=== PATIENT | female | born 1945 | race Caucasian/White ===

== ENCOUNTER 2019-10-31 15:48 | Inpatient (IN) | payer MEDICARE ==
[2019-10-31] MEDS ORDERED: METHYLPREDNISOLONE INJ 125 MG/2 ML SDV IV ONE (15:58)
[2019-10-31] MEDS ORDERED: IPRATROPIUM/ALBUTEROL 0.5-2.5 MG/3 ML AMPUL NEB ONE (15:58)
[2019-10-31] MEDS ORDERED: DILTIAZEM HCL/D5W 125 MG/125 ML RTUINJ IV PRN ×2 (15:58→21:28)
[2019-10-31 16:07] LABS: ABSOLUTE BASOPHILS # (AUTO) 0.1 10^3/uL (0.0-0.2); ABSOLUTE LYMPHOCYTES (AUTO) 0.5 10^3/uL (0.5-4.7); ABSOLUTE MONOCYTES (AUTO) 0.2 10^3/uL (0.1-1.4); ABSOLUTE NEUT (AUTO) 7.1 10^3/uL (1.7-8.2); BASOPHILS % (AUTO) 0.6 % (0-2); EOSINOPHILS % (AUTO) 0.3 % (0-6); HEMATOCRIT 41.8 % (36.0-47.0); HEMOGLOBIN 14.1 g/dL (12.0-15.5); LYMPHOCYTES % (AUTO) 5.8 % (13-45); MEAN CORPUSCULAR HEMOGLOBIN 33.6 pg (27.0-33.4); MEAN CORPUSCULAR HGB CONC 33.8 g/dL (32.0-36.0); MEAN CORPUSCULAR VOLUME 99 fl (80-97); MONOCYTES % (AUTO) 2.7 % (3-13); PLATELET COUNT 227 10^3/uL (150-450); RED BLOOD COUNT 4.21 10^6/uL (3.72-5.28); SEGMENTED NEUTROPHILS % (AUTO) 90.6 % (42-78); TOTAL CELLS COUNTED % (AUTO) 100 %; WHITE BLOOD COUNT 7.9 10^3/uL (4.0-10.5)
--- NOTE | 2019-10-31 16:19 | RADIOLOGY REPORT (SQ) ---
EXAM DESCRIPTION: CHEST SINGLE VIEW IMAGES COMPLETED DATE/TIME: 10/31/2019 4:09 pm REASON FOR STUDY: sob COMPARISON: None. EXAM PARAMETERS: NUMBER OF VIEWS: One view. TECHNIQUE: An AP view of the chest was obtained. RADIATION DOSE: NA LIMITATIONS: None. FINDINGS: LUNGS AND PLEURA: Upper lobe predominant emphysema and interstitial opacities in the lower lobes. There is no acute consolidation, pleural effusion or pneumothorax. MEDIASTINUM AND HILAR STRUCTURES: No mediastinal or hilar contour abnormality. HEART AND VASCULAR STRUCTURES: The cardiac silhouette and pulmonary vasculature are within normal reyes its. BONES: No acute findings. HARDWARE: None in the chest. OTHER: No other finding. IMPRESSION: COPD without a superimposed acute cardiopulmonary process. TECHNICAL DOCUMENTATION: JOB ID: [id number] 2010 [employer]- All Rights Reserved Reading location - IP/workstation name: [email or web address]
--- NOTE | 2019-10-31 16:22 | ER Document Report ---
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 The patient was sent over here to the ER. The patient states she is on 8 L of oxygen all the time. She did have her oxygen on at the time EMS noted that she was in A. fib with RVR. She has no history of A. fib denies any recent fever sore throat runny nose, no coronavirus exposures. Patient denies any chest pain. EMS found her sats to be 68% she denies calf pain or leg swelling more than usual. She presents here for further evaluation and treatment. EMS had to place her on CPAP and a Cardizem bolus and drip. We will continue this state her symptoms were sudden and severe. She has no history of pulmonary embolism. - Related Data Allergies/Adverse Reactions: No Known Allergies Allergy (Verified 10/31/19 16:32) Past Medical History - Social History Smoking Status: Unknown if Ever Smoked Family History: Reviewed & Not Pertinent Review of Systems - Review of Systems Constitutional: denies: Chills, Fever Cardiovascular: Palpitations, Heart racing, Dyspnea. denies: Chest pain Gastrointestinal: denies: Nausea, Vomiting Musculoskeletal: No symptoms reported -: Yes All other systems reviewed and negative Physical Exam - Vital signs Vitals: Resp Pulse Ox 20 100 10/31/19 15:52 10/31/19 15:52 - Notes Notes: GENERAL_APPEARANCE: well_nourished, alert, cooperative, obvious respiratory distress VITALS: reviewed, see vital signs table. HEAD: no_swelling\tenderness on the head. EYES: PERRL, EOMI, conjunctiva_clear. NOSE: no_nasal_discharge. MOUTH: (-)decreased moisture. THROAT: no_tonsilar_inflammation, no_airway_obstruction. no_lymphadenopathy NECK: supple, no_neck_tenderness, (-)thyromegaly. BACK: no_back_tenderness. CHEST_WALL: no_chest_tenderness. LUNGS: Scattered wheezing, no_rales, no_rhonchi, (moderate)accessory muscle use, or air exchange bilateral. HEART: normal_rate, normal_rhythm, normal_S1, normal_S2, (-)S3, (-)S4, no_murmur, no_rub. ABDOMEN: soft, no_abd_tenderness, (-)guarding, (-)rebound, no_organomegaly, no_abd_masses. EXTREMITIES: good pulses in all_extremities, no_swelling\tenderness in the extremities, 1+ _edema. SKIN: warm, dry, good_color, no_rash. MENTAL_STATUS: speech_labored oriented_X_3, labored_affect, responds_appropriately to questions. NEURO: Neg Motor or Sensory Deficits on exam, CN 2-12 intact, DTR 2+ symmetric x 4, No cerbellar signs Course - Re-evaluation Re-evalutation: 10/31/19 16:21 74-year-old female with history of COPD presents with respiratory distress. Patient was placed on BiPAP. EMS did use CPAP she also has new onset atrial f ibrillation. She was given Cardizem and Cardizem bolus. We will rate control her. 10/31/19 20:27 D-dimer was positive. We got a CTA which did not show any pulmonary embolism. Chronic changes were noted. Likely the patient is having a COPD exacerbation with A. fib with RVR. She has been rate controlled on a Cardizem drip. I spoke with hospitalist service for admission. We will continue the Cardizem drip. Still on the BiPAP but is improving. Had steroids. I see no signs of any pneumonia lactic acid was elevated but this is likely due to her tachycardia causing this. - Vital Signs Vital signs: Temp Pulse Resp BP Pulse Ox 98.0 F 128 H 20 129/59 H 100 10/31/19 16:59 10/31/19 16:59 10/31/19 18:40 10/31/19 18:01 10/31/19 18:01 - Laboratory Result Diagrams: 10/31/19 15:18 10/31/19 15:18 Laboratory results interpreted by me: 10/31/19 10/31/19 10/31/19 15:18 15:18 15:18 MCV 99 H MCH 33.6 H Lymph % (Auto) 5.8 L Clarke % (Auto) 2.7 L Seg Neutrophils % 90.6 H D-Dimer ABG pO2 ABG Total CO2 ABG O2 Saturation Sodium 133.8 L Chloride 97 L Glucose 143 H Lactic Acid CK-MB (CK-2) 4.93 H 10/31/19 10/31/19 10/31/19 15:18 16:01 16:05 MCV MCH Lymph % (Auto) Clarke % (Auto) Seg Neutrophils % D-Dimer 0.59 H ABG pO2 198.4 H ABG Total CO2 25.1 H ABG O2 Saturation 99.4 H Sodium Chloride Glucose Lactic Acid 2.3 H CK-MB (CK-2) - Diagnostic Test Radiology reviewed: Reports reviewed Radiology results interpreted by me: 10/31/19 20:28 Chest X-Ray 10/31/19 15:53 IMPRESSION: COPD without a superimposed acute cardiopulmonary process. Chest/Abdomen CTA 10/31/19 17:35 IMPRESSION: There is no pulmonary embolus. There is no aortic aneurysm or dissection. Osseous findings as described. Chronic lung changes. - EKG Interpretation by Me Rate: Tachycardia Rhythm: A.Fib Critical Care Note - Critical Care Note Total time excluding time spent on procedures (mins): 33 Discharge - Discharge Clinical Impression: Atrial fibrillation with RVR, COPD exacerbation Condition: Fair Disposition: ADMITTED INPATIENT Admitting Provider: Ashley (Hospitalist) Unit Admitted: [facility]
[2019-10-31 16:25] LABS: ALBUMIN 4.5 g/dL (3.5-5.0); ALKALINE PHOSPHATASE 61 U/L (38-126); ANION GAP 10 (5-19); ASPARTATE AMINO TRANSFERASE 32 U/L (14-36); BILIRUBIN,TOTAL 0.9 mg/dL (0.2-1.3); BLOOD UREA NITROGEN 12 mg/dL (7-20); CALCIUM 9.6 mg/dL (8.4-10.2); CARBON DIOXIDE 27 mmol/L (22-30); CHLORIDE 97 mmol/L (98-107); CREATINE KINASE 82 U/L (30-135); GLUCOSE 143 mg/dL (75-110); POTASSIUM 4.4 mmol/L (3.6-5.0); TOTAL PROTEIN 7.2 g/dL (6.3-8.2)
[2019-10-31 16:32] LABS: ARTERIAL BLOOD BASE EXCESS -0.8 mmol/L; ARTERIAL BLOOD H2CO3 1.19 mmol/L (1.05-1.35); ARTERIAL BLOOD HCO3 23.9 mmol/L (20-24); ARTERIAL BLOOD O2 SATURATION 99.4 % (94-98); ARTERIAL BLOOD PCO2 39.7 mmHg (35-45); ARTERIAL BLOOD PO2 198.4 mmHg (80-100); ARTERIAL BLOOD TOTAL CO2 25.1 mmol/L (21-25)
[2019-10-31 16:34] LABS: CREATINE KINASE MB 4.93 ng/mL (<4.55)
[2019-10-31 16:35] LABS: ARTERIAL BLOOD FIO2 BI-PAP
[2019-10-31 16:39] LABS: TROPONIN I < 0.012 ng/mL
--- NOTE | 2019-10-31 19:10 | RADIOLOGY REPORT (SQ) ---
EXAM DESCRIPTION: CTA CHEST IMAGES COMPLETED DATE/TIME: 10/31/2019 6:35 pm REASON FOR STUDY: SOB - High D-Dimer COMPARISON: None. TECHNIQUE: CT scan of the chest performed using helical scanning technique with dynamic intravenous contrast injection. Images reviewed with lung, soft tissue and bone windows. Reconstructed coronal and sagittal MPR images reviewed. Additional 3 dimensional post-processing performed to develop Maximal Intensity Projection images (AZ P). All images stored on PACS. All CT scanners at this facility use dose modulation, iterative reconstruction, and/or weight based d osing when appropriate to reduce radiation dose to as low as reasonably achievable (ALARA). [facility]: Dose Right [facility]: CareDose [facility]: Dose Right [facility]: Teradose 4D [facility]: [employer] CONTRAST TYPE AND DOSE: contrast/concentration: Isovue 350.00 mg/ml; Total Contrast Delivered: 59.0 ml; Total Saline Delivered: 38.1 ml Contrast bolus adequate for pulmonary arteries and aorta. RENAL FUNCTION: BUN 12 creatinine 0.65 RADIATION DOSE: CT Rad equipment meets quality standard of care and radiation dose reduction techniq ues were employed. CTDIvol: 14.3 - 14.9 mGy. DLP: 588 mGy-cm. . LIMITATIONS: None. FINDINGS: LUNGS AND PLEURA: Mild chronic interstitial changes. No acute infiltrate, effusion, or ma ss. AORTA AND GREAT VESSELS: No aneurysm. No dissection. HEART: No pericardial effusion. No significant coronary artery calcifications. PULMONARY ARTERIES: No emboli visualized in the main pulmonary arteries or the segmental branches. HILAR AND MEDIASTINAL STRUCTURES: No identified masses or abnormal nodes. HARDWARE: None in the chest. UPPER ABDOMEN: No significant findings. Limited exam. THYROID AND OTHER SOFT TISSUES: No masses. No adenopathy. BONES: Cannot entirely exclude a fracture of the lower sternum, but this most likely is secondary to motion. 3D MIPS: Confirm above findings. OTHER: No other significant finding. IMPRESSION: There is no pulmonary embolus. There is no aortic aneurysm or dissection. Osseous find ings as described. Chronic lung changes. COMMENT: Quality ID # [id number]: Final reports with documentation of one or more dose reduction techniques (e.g., Automated exposure control, adjustment of the mA and/or kV according to patient size, use of iterative reconstruction technique) TECHNICAL DOCUMENTATION: JOB ID: [id number] [employer]- All Rights Reserved Reading location - IP/workstation name: [email or web address]
[2019-10-31] MEDS ORDERED: LEVALBUTEROL HCL NEB 0.63 MG/3 ML AMPUL NEB PRN (21:19)
[2019-10-31] MEDS ORDERED: MAGNESIUM HYDROXIDE SUSP 30 ML UDCUP PO PRN (21:19)
[2019-10-31] MEDS ORDERED: MAG HYDROX/AL HYDROX/SIMETH SUSP 30 ML UDCUP PO PRN (21:19)
[2019-10-31] MEDS ORDERED: ONDANSETRON HCL INJ/PF 4 MG/2 ML SDV IV PRN (21:19)
[2019-10-31] MEDS: FAMOTIDINE 20 MG TABLET PO SCH (22:13)
[2019-10-31] MEDS: HEPARIN SOD (PORCINE) 5,000 UNIT/ML 1 ML VIAL SUBCUT SCH (22:13)
[2019-10-31] MEDS ORDERED: LORAZEPAM INJ 2 MG/1 ML VIAL IV PRN (22:21)
[2019-10-31] MEDS ORDERED: MORPHINE SULFATE 10 MG/ML INJ IV PRN ×4 (22:21→22:32)
[2019-10-31] MEDS ORDERED: ACETAMINOPHEN 325 MG TABLET PO PRN (22:21)
[2019-10-31] MEDS ORDERED: SILDENAFIL CITRATE 20 MG TABLET ONE (22:36)
[2019-10-31] MEDS: SILDENAFIL CITRATE 20 MG TABLET PO SCH (22:48)
[2019-11-01] MEDS: DILTIAZEM HCL 60 MG TABLET PO SCH ×4 (00:07→17:51)
[2019-11-01] MEDS: LEVALBUTEROL HCL NEB 1.25 MG/3 ML AMPUL NEB SCH ×3 (00:07→15:46)
[2019-11-01 01:08] LABS: TROPONIN I < 0.012 ng/mL
--- NOTE | 2019-11-01 05:41 | PDOC H&P ---
History of Present Illness Admission Date/PCP: 10/31/2019 20:24 BECCA CLIFFORD Patient complains of: Dyspnea History of Present Illness: VALERY TONEY is a 74 year old female who presents the emergency room with acute dyspnea. 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 Her dyspnea was accompanied by sudden generalized weakness and was associated with rapid heart palpitations as well as severe orthopnea. Her dyspnea was made worse by any attempted exertion or activity. She denies other associated or accompanying signs and symptoms. She admits prior similar ep isodes due to her COPD. She has not identified any additional aggravating or ameliorating factors for her acute dyspnea. Upon EMS arrival they found her hypoxic and her heart rhythm showed atrial fibrillation with RVR. She was placed on CPAP and subsequently transported the short distance to the emergency room where she continued to be hypoxic with atrial fibrillation and a rapid ventricular response. She was placed on an intravenous Cardizem infusion after receiving an intravenous bolus of Cardizem. Her heart rate is now well controlled and she is being admitted to [facility] for further evaluation and treatment. Past Medical History Cardiac Medical History: Reports: Congestive Heart Failure, Other - Pulmonary hypertension Denies: Atrial Fibrillation, Coronary Artery Disease, DVT, Myocardial Infarction, Pulmonary Embolism Pulmonary Medical History: Reports: Chronic Obstructive Pulmonary Disease (COPD), Respiratory Failure - Chronic respiratory failure with hypoxia Denies: Asthma EENT Medical History: Denies: Cataracts, Ears - Hearing aids Neurological Medical History: Denies: Hemorrhagic CVA, Ischemic CVA, Seizures Endocrine Medical History: Denies: Diabetes Mellitus Type 1, Diabetes Mellitus Type 2, Hyperthyroidism, Hypothyroidism, Obesity Renal/ Medical History: Denies: Chronic Kidney Disease, Nephrolithiasis Malignancy Medical History: Reports: None GI Medical History: Denies: Cirrhosis, Crohn's Disease, Hepatitis, Peptic Ulcer Disease, Ulcerat albin Colitis Musculoskeltal Medical History: Denies: Arthritis, Fibromyalgia Skin Medical History: Denies: Eczema, Psoriasis Psychiatric Medical History: Reports: Depression Denies: Alcohol Dependency, Substance Abuse, Tobacco Dependency Traumatic Medical History: Reports: None Hematology: Denies: Anemia, Bleeding Tendencies Infectious Medical History: Reports: None Past Surgical History Past Surgical History: Reports: None Social History Information Source: Patient Lives with: Spouse/Significant other Smoking Status: Former Smoker Electronic Cigarette use?: No Frequency of Alcohol Use: Social - A glass of wine or beer once or twice a week Hx Recreational Drug Use: No Drugs: None Hx Prescription Drug Abuse: No - Advance Directive Resuscitation Status: Full Code Surrogate healthcare decision maker:: Samantha Batres Family History Family History: denies: CAD, DM, Hypertension, Malignancy Parental Family History Reviewed: Yes Children Family History Reviewed: No Sibling(s) Family History Reviewed.: Yes Medication/Allergy Home Medications: Albuterol Sulfate [Ventolin Hfa 8 gm Mdi (1 Mdi/ER Disp)] 2 puff IH Q4HP PRN 10/31/19 Furosemide [Lasix 20 mg Tablet] 20 mg PO DAILY 10/31/19 Macitentan [Opsumit] 10 mg PO DAILY 10/31/19 Prednisone 10 mg PO DAILY 10/31/19 Sertraline HCl 50 mg PO DAILY 10/31/19 Sildenafil Citrate 20 mg PO TID 10/31/19 Allergies/Adverse Reactions: No Known Allergies Allergy (Verified 10/31/19 16:32) Review of Systems Constitutional: PRESENT: as per HPI, weakness. ABSENT: chills, fever(s) Eyes: ABSENT: visual disturbances, other - Eye pain Ears: ABSENT: hearing changes, other - Ear pain Nose, Mouth, and Throat: ABSENT: headache(s), mouth pain, sore throat Cardiovascular: PRESENT: as per HPI, dyspnea on exertion, orthropnea, palpitations. ABSENT: chest pain, edema Respiratory: PRESENT: as per HPI, dyspnea. ABSENT: cough Gastrointestinal: ABSENT: abdominal pain, constipation, diarrhea, nausea, vomiting Genitourinary: ABSENT: dysuria, hematuria Musculoskeletal: ABSENT: back pain, joint swelling Integumentary: ABSENT: pruritus, rash Neurological: ABSENT: confusion, convulsions, focal weakness, memory loss, syncope Psychiatric: ABSENT: anxiety, depression Endocrine: ABSENT: cold intolerance, heat intolerance, polydipsia, polyphagia, polyuria Hematologic/Lymphatic: ABSENT: easy bleeding, easy bruising Allergic/Immunologic: ABSENT: seasonal rhinorrhea Physical Exam Vital Signs: Temp Pulse Resp BP Pulse Ox 98.0 F 128 H 20 129/59 H 100 10/31/19 16:59 10/31/19 16:59 10/31/19 18:40 10/31/19 18:01 10/31/19 18:01 Intake & Output 10/29/19 10/30/19 10/31/19 23:59 23:59 23:59 Intake Total 26 Balance 26 Weight 65.771 kg General appearance: PRESENT: cooperative, mild distress - Secondary to dyspnea, other - On BiPAP Head exam: PRESENT: atraumatic, normocephalic Eye exam: PRESENT: conjunctiva pink. ABSENT: conjunctival injection, scleral icterus Ear exam: PRESENT: normal external ear exam. ABSENT: bleeding, drainage Mouth exam: PRESENT: dry mucosa, neck supple Neck exam: ABSENT: JVD, thyromegaly, tracheal deviation Respiratory exam: PRESENT: decreased breath sounds - Moderately decreased breath sounds throughout all ventura, prolonged expiratory phas - Moderately prolonged expiratory phase noted throughout all ventura, symmetrical, wheezes - Mild expiratory wheezes noted in all ventura Cardiovascular exam: PRESENT: irregular rhythm - Irregularly irregular rate and rhythm. ABSENT: clicks, gallop, rubs Pulses: PRESENT: normal radial pulses, normal dorsalis pedis pul Vascular exam: PRESENT: normal capillary refill. ABSENT: pallor GI/Abdominal exam: PRESENT: normal bowel sounds, soft. ABSENT: tenderness Rectal exam: PRESENT: deferred Extremities exam: ABSENT: joint swelling, pedal edema Musculoskeletal exam: ABSENT: deformity, dislocation Neurological exam: PRESENT: alert, oriented to person, oriented to place, oriented to time, oriented to situation, CN II-XII grossly intact. ABSENT: motor sensory deficit Psychiatric exam: PRESENT: appropriate affect, normal mood Skin exam: PRESENT: dry, intact, warm. ABSENT: jaundice, rash, urticaria Results Laboratory Results: 10/31/19 15:18 10/31/19 15:18 10/31/19 10/31/19 10/31/19 15:18 15:18 16:01 WBC 7.9 RBC 4.21 Hgb 14.1 Hct 41.8 MCV 99 H MCH 33.6 H MCHC 33.8 RDW 14.0 Plt Count 227 Seg Neutrophils % 90.6 H Carbonic Acid 1.19 HCO3/H2CO3 Ratio 20:1 ABG pH 7.40 ABG pCO2 39.7 ABG pO2 198.4 H ABG HCO3 23.9 ABG O2 Saturation 99.4 H ABG Base Excess -0.8 FiO2 BI-PAP Sodium 133.8 L Potassium 4.4 Chloride 97 L Carbon Dioxide 27 Anion Gap 10 BUN 12 Creatinine 0.65 Est GFR ( Amer) > 60 Glucose 143 H Lactic Acid Calcium 9.6 Total Bilirubin 0.9 AST 32 Alkaline Phosphatase 61 Total Protein 7.2 Albumin 4.5 10/31/19 16:05 WBC RBC Hgb Hct MCV MCH MCHC RDW Plt Count Seg Neutrophils % Carbonic Acid HCO3/H2CO3 Ratio ABG pH ABG pCO2 ABG pO2 ABG HCO3 ABG O2 Saturation ABG Base Excess FiO2 Sodium Potassium Chloride Carbon Dioxide Anion Gap BUN Creatinine Est GFR ( Amer) Glucose Lactic Acid 2.3 H Calcium Total Bilirubin AST Alkaline Phosphatase Total Protein Albumin 10/31/19 10/31/19 15:18 15:18 Creatine Kinase 82 CK-MB (CK-2) 4.93 H Troponin I < 0.012 Impressions: Chest X-Ray 10/31/19 15:53 IMPRESSION: COPD without a superimposed acute cardiopulmonary process. Chest/Abdomen CTA 10/31/19 17:35 IMPRESSION: There is no pulmonary embolus. There is no aortic aneurysm or dissection. Osseous findings as described. Chronic lung changes. Assessment and Plan - Diagnosis (1) Atrial fibrillation with RVR Is this a current diagnosis for this admission?: Yes (2) Acute and chronic respiratory failure with hypoxia Is this a current diagnosis for this admission?: Yes (3) Pulmonary arterial hypertension Is this a current diagnosis for this admission?: Yes (4) Chronic obstructive pulmonary disease Qualifiers: COPD type: unspecified COPD Qualified Code(s): J44.9 - Chronic obstructive pulmonary disease, unspecified Is this a current diagnosis for this admission?: Yes (5) Depression Qualifiers: Depression Type: unspecified Qualified Code(s): F32.9 - Major depressive disorder, single episode, unspecified Is this a current diagnosis for this admission?: Yes - Plan Summary Summary: Patient is admitted to [facility] where she will be receiving routine supportive and symptomatic cares. She will be maintained on a Cardizem infusion as needed to control her heart rate until she can be converted to an oral preparation. A cardiology consultation will be obtained with Dr. Guevara. She will receive Ativan 1 mg IV every 4 hours as needed for anxiety or restlessness. She received morphine sulfate 2 to 4 mg IV every 2 hours as needed for pain using a sliding scale for dosing. She will receive a cardiac diet. CBCs, metabolic profiles, magnesium levels and additional laboratory and/or radiographic evaluations will be obtained as appropriate. She will receive supplemental oxygen via nasal cannula and/or noninvasive airway pressure support devices in order to maintain an adequate oxygenation. Her home medications will be resumed as soon as her medication list has been verified and reconciled. - Inpatient Certification Based on my medical assessment, after consideration of the patient's com orbidities, presenting symptoms, or acuity I expect that the services needed warrant INPATIENT care.: Yes I certify that my determination is in accordance with my understanding of Medicare's requirements for reasonable and necessary INPATIENT services [42 CFR 412.3e].: Yes Medical Necessity: Significant Comorbidiites Make Outpatient Treatment Too Risky, Need Close Monitoring Due to Risk of Patient Decompensation, Need For Continuous Telemetry Monitoring, Risk of Complication if Not Cared For in Hospital
[2019-11-01] MEDS: HEPARIN SOD (PORCINE) 5,000 UNIT/ML 1 ML VIAL SUBCUT SCH ×3 (05:55→22:25)
[2019-11-01 07:45] LABS: HEMATOCRIT 36.9 % (36.0-47.0); HEMOGLOBIN 12.5 g/dL (12.0-15.5); MEAN CORPUSCULAR HEMOGLOBIN 33.6 pg (27.0-33.4); MEAN CORPUSCULAR HGB CONC 33.9 g/dL (32.0-36.0); MEAN CORPUSCULAR VOLUME 99 fl (80-97); PLATELET COUNT 187 10^3/uL (150-450); RED BLOOD COUNT 3.73 10^6/uL (3.72-5.28); RED CELL DISTRIBUTION WIDTH 14.2 % (11.5-14.0)
[2019-11-01 08:10] LABS: ANION GAP 7 (5-19); BLOOD UREA NITROGEN 12 mg/dL (7-20); CALCIUM 9.1 mg/dL (8.4-10.2); CARBON DIOXIDE 30 mmol/L (22-30); CHLORIDE 98 mmol/L (98-107); CHOLESTEROL 171.11 mg/dL (0-200); CREATINE KINASE 69 U/L (30-135); GLUCOSE 165 mg/dL (75-110); POTASSIUM 4.1 mmol/L (3.6-5.0); TRIGLYCERIDES 47 mg/dL (<150)
[2019-11-01 08:21] LABS: CREATINE KINASE MB 5.93 ng/mL (<4.55); DIRECT LDL 59 mg/dL (<100); NT PRO BNP 2880 pg/mL (<450)
[2019-11-01 08:24] LABS: TROPONIN I < 0.012 ng/mL
[2019-11-01 08:25] LABS: FREE T3 3.19 pg/mL (2.77-5.27)
[2019-11-01 08:39] LABS: THYROID STIMULATING HORMONE 0.48 uIU/mL (0.47-4.68)
[2019-11-01] MEDS ORDERED: MACITENTAN 10 MG PO SCH (10:00)
[2019-11-01] MEDS: DOCUSATE SODIUM 100 MG CAPSULE PO SCH ×2 (10:54→17:51)
[2019-11-01] MEDS: FAMOTIDINE 20 MG TABLET PO SCH ×2 (10:57→22:25)
[2019-11-01] MEDS: FUROSEMIDE 20 MG TABLET PO SCH (10:57)
[2019-11-01] MEDS: SILDENAFIL CITRATE 20 MG TABLET PO SCH ×3 (10:57→17:51)
[2019-11-01] MEDS: SERTRALINE HCL 50 MG TABLET PO SCH (10:57)
[2019-11-01] MEDS: PREDNISONE 10 MG TABLET PO SCH (10:57)
--- NOTE | 2019-11-01 12:08 | PDOC CONSULTATION ---
Consultation Consult Date: 11/01/19 Provider Consulted: PEREZ WEN Consult reason:: Atrial fibrillation History of Present Illness Admission Date/PCP: 10/31/19 21:31 BECCA CLIFFORD Patient complains of: Shortness of breath History of Present Illness: VALERY TONEY is a 74 year old female Who is known to have COPD. She is a former smoker. She developed acute onset dyspnea yesterday and upon presentation was found to be hypoxic and in atrial fibrillation with rapid ventricular response. When she was started on intravenous rate control measures. This corrected the rate with improvement in symptoms. Subsequently she converted to sinus rhythm without intervention. No prior history of atrial fibrillation is reported. No prior cardiac illnesses reported No familial illnesses reported Patient is originally from [facility] from a town near [place]. No surgical history reported At the present time patient feels quite comfortable and does not report chest pain or dyspnea. Telemetry shows sinus rhythm. Past Medical History Cardiac Medical History: Reports: Congestive Heart Failure, Other - Pulmonary hypertension Denies: Atrial Fibrillation, Coronary Artery Disease, DVT, Myocardial Infarction, Pulmonary Embolism Pulmonary Medical History: Reports: Chronic Obstructive Pulmonary Disease ([employer] D), Respiratory Failure - Chronic respiratory failure with hypoxia Denies: Asthma EENT Medical History: Denies: Cataracts, Ears - Hearing aids Neurological Medical History: Denies: Hemorrhagic CVA, Ischemic CVA, Seizures Endocrine Medical History: Denies: Diabetes Mellitus Type 1, Diabetes Mellitus Type 2, Hyperthyroidism, Hypothyroidism, Obesity Renal/ Medical History: Denies: Chronic Kidney Disease, Nephrolithiasis Malignancy Medical History: Reports: None GI Medical History: Denies: Cirrhosis, Crohn's Disease, Hepatitis, Peptic Ulcer Disease, Ulcerative Colitis Musculoskeltal Medical History: Denies: Arthritis, Fibromyalgia Skin Medical History: Denies: Eczema, Psoriasis Psychiatric Medical History: Reports: Depression Denies: Alcohol Dependency, Substance Abuse, Tobacco Dependency Traumatic Medical History: Reports: None Hematology: Denies: Anemia, Bleeding Tendencies Infectious Medical History: Reports: None Past Surgical History Past Surgical History: Reports: None Social History Lives with: Spouse/Significant other Smoking Status: Former Smoker Electronic Cigarette use?: No Frequency of Alcohol Use: Social - A glass of wine or beer once or twice a week Hx Recreational Drug Use: No Drugs: None Hx Prescription Drug Abuse: No - Advance Directive Resuscitation Status: Full Code Family History Family History: denies: CAD, DM, Hypertension, Malignancy Parental Family History Reviewed: Yes - No familial illnesses Children Family History Reviewed: No Sibling(s) Family History Reviewed.: No Medication/Allergy Home Medications: Albuterol Sulfate [Ventolin Hfa 8 gm Mdi (1 Mdi/ER Disp)] 2 puff IH Q4HP PRN 10/31/19 Furosemide [Lasix 20 mg Tablet] 20 mg PO DAILY 10/31/19 Macitentan [Opsumit] 10 mg PO DAILY 10/31/19 Prednisone 10 mg PO DAILY 10/31/19 Sertraline HCl 50 mg PO DAILY 10/31/19 Sildenafil Citrate 20 mg PO TID 10/31/19 Allergies/Adverse Reactions: No Known Allergies Allergy (Verified 10/31/19 16:32) Physical Exam Vital Signs: Temp Pulse Resp BP Pulse Ox 97.7 F 62 20 111/48 L 94 11/01/19 07:44 11/01/19 08:50 11/01/19 08:50 11/01/19 07:44 11/01/19 08:50 Intake & Output 10/31/19 11/01/19 11/02/19 06:59 06:59 06:59 Intake Total 502 Output Total 400 Balance 102 Weight 61.3 kg General appearance: PRESENT: no acute distress, cooperative, well-developed, well-nourished Head exam: PRESENT: atraumatic, normocephalic Eye exam: PRESENT: conjunctiva pink, EOMI Respiratory exam: PRESENT: decreased breath sounds, prolonged expiratory phas, symmetrical, unlabored Cardiovascular exam: PRESENT: RRR, +S1, +S2 Pulses: PRESENT: normal radial pulses GI/Abdominal exam: PRESENT: soft Rectal exam: PRESENT: deferred Neurological exam: PRESENT: alert, awake, oriented to person, oriented to place, oriented to time, oriented to situation Psychiatric exam: PRESENT: appropriate affect Skin exam: PRESENT: dry, intact, normal color Results Laboratory Results: 11/01/19 07:26 11/01/19 07:26 10/31/19 10/31/19 10/31/19 15:18 15:18 16:01 WBC 7.9 RBC 4.21 Hgb 14.1 Hct 41.8 MCV 99 H MCH 33.6 H MCHC 33.8 RDW 14.0 Plt Count 227 Seg Neutrophils % 90.6 H Carbonic Acid 1.19 HCO3/H2CO3 Ratio 20:1 ABG pH 7.40 ABG pCO2 39.7 ABG pO2 198.4 H ABG HCO3 23.9 ABG O2 Saturation 99.4 H ABG Base Excess -0.8 FiO2 BI-PAP Sodium 133.8 L Potassium 4.4 Chloride 97 L Carbon Dioxide 27 Anion Gap 10 BUN 12 Creatinine 0.65 Est GFR ( Amer) > 60 Glucose 143 H Lactic Acid Calcium 9.6 Magnesium Total Bilirubin 0.9 AST 32 Alkaline Phosphatase 61 Total Protein 7.2 Albumin 4.5 Triglycerides Cholesterol LDL Cholesterol Direct VLDL Cholesterol HDL Cholesterol TSH Free T3 pg/mL 10/31/19 10/31/19 11/01/19 16:05 22:25 07:26 WBC 5.0 RBC 3.73 Hgb 12.5 Hct 36.9 MCV 99 H MCH 33.6 H MCHC 33.9 RDW 14.2 H Plt Count 187 Seg Neutrophils % Carbonic Acid HCO3/H2CO3 Ratio ABG pH ABG pCO2 ABG pO2 ABG HCO3 ABG O2 Saturation ABG Base Excess FiO2 Sodium Potassium Chloride Carbon Dioxide Anion Gap BUN Creatinine Est GFR ( Amer) Glucose Lactic Acid 2.3 H 2.7 H Calcium Magnesium Total Bilirubin AST Alkaline Phosphatase Total Protein Albumin Triglycerides Cholesterol LDL Cholesterol Direct VLDL Cholesterol HDL Cholesterol TSH Free T3 pg/mL 11/01/19 11/01/19 07:26 07:26 WBC RBC Hgb Hct MCV MCH MCHC RDW Plt Count Seg Neutrophils % Carbonic Acid HCO3/H2CO3 Ratio ABG pH ABG pCO2 ABG pO2 ABG HCO3 ABG O2 Saturation ABG Base Excess FiO2 Sodium 134.5 L Potassium 4.1 Chloride 98 Carbon Dioxide 30 Anion Gap 7 BUN 12 Creatinine 0.58 Est GFR ( Amer) > 60 Glucose 165 H Lactic Acid Calcium 9.1 Magnesium 1.8 Total Bilirubin AST Alkaline Phosphatase Total Protein Albumin Triglycerides 47 Cholesterol 171.11 LDL Cholesterol Direct 59 VLDL Cholesterol 9.0 L HDL Cholesterol 120 TSH 0.48 Free T3 pg/mL 3.19 10/31/19 10/31/19 10/31/19 15:18 15:18 22:25 Creatine Kinase 82 Cancelled CK-MB (CK-2) 4.93 H Troponin I < 0.012 NT-Pro-B Natriuret Pep 10/31/19 11/01/19 11/01/19 22:25 00:35 00:35 Creatine Kinase 63 CK-MB (CK-2) Cancelled 5.00 H Troponin I Cancelled < 0.012 NT-Pro-B Natriuret Pep 11/01/19 11/01/19 11/01/19 07:26 07:26 07:26 Creatine Kinase Cancelled 69 CK-MB (CK-2) 5.93 H Troponin I < 0.012 NT-Pro-B Natriuret Pep 2880 H 11/01/19 07:26 Creatine Kinase CK-MB (CK-2) Troponin I NT-Pro-B Natriuret Pep Cancelled EKG Comments: Telemetry presently shows sinus rhythm. Twelve-lead EKG 11/01/2019. Independently reviewed by me. Sinus rhythm, 61 bpm, low voltage, right axis deviation, QTC is 440 ms, normal AV conduction Troponin is less than 0.012 CT abdomen pelvis No pulmonary embolism no aortic dissection chronic lung changes Impressions: Chest X-Ray 10/31/19 15:53 IMPRESSION: COPD without a superimposed acute cardiopulmonary process. Chest/Abdomen CTA 10/31/19 17:35 IMPRESSION: There is no pulmonary embolus. There is no aortic aneurysm or dissection. Osseous findings as described. Chronic lung changes. Assessment & Plan - Diagnosis (1) Atrial fibrillation with RVR Is this a current diagnosis for this admission?: Yes Plan: Paroxysmal atrial fibrillation Spontaneous onset of atrial fibrillation with rapid ventricular response. Patient is converted to sinus rhythm without intervention I suspect that she had profound hypoxia which acted as a trigger for atrial fibrillation It is possible that she could have episodes in the future. Continue treatment for COPD and attempt to avoid hypoxia It would be reasonable to continue us low-dose of oral calcium channel jasper to suppress triggers for atrial fibrillation. Should she continue to have more episodes of atrial fibrillation she will require systemic anticoagulation. I can follow her in the office. Presently she is in sinus rhythm. (2) COPD exacerbation Is this a current diagnosis for this admission?: Yes Plan: Known COPD Nicotine dependence in remission Continue management for COPD I suspect COPD exacerbation acted as a trigger to precipitate atrial fibrillation. Low-dose diltiazem or low-dose beta-jasper as tolerated to suppress triggers for atrial fibrillation and to decrease ventricular rate should that occur.
--- NOTE | 2019-11-01 12:52 | PDOC PROGRESS REPORT ---
Subjective Progress Note for:: 11/01/19 Reason For Visit: ATRIAL FIBRILATION WITH RAPID VENTRICULAR RESPONSE 11/01/2019 Patient admitted for acute shortness of breath, atrial fib with RVR, hypoxia, COPD exacerbation Physical Exam Vital Signs: Temp Pulse Resp BP Pulse Ox 97.7 F 62 20 111/48 L 94 11/01/19 07:44 11/01/19 08:50 11/01/19 08:50 11/01/19 07:44 11/01/19 12:44 Intake & Output 10/31/19 11/01/19 11/02/19 06:59 06:59 06:59 Intake Total 502 Output Total 400 Balance 102 Weight 61.3 kg General appearance: PRESENT: mild distress Respiratory exam: PRESENT: decreased breath sounds Cardiovascular exam: PRESENT: RRR. ABSENT: diastolic murmur, rubs, systolic murmur Neurological exam: PRESENT: alert, awake, oriented to person, oriented to place, oriented to time, oriented to situation, CN II-XII grossly intact. ABSENT: motor sensory deficit Psychiatric exam: PRESENT: anxious, appropriate affect, normal mood. ABSENT: homicidal ideation, suicidal ideation Results Laboratory Results: 11/01/19 07:26 11/01/19 07:26 10/31/19 10/31/19 10/31/19 15:18 15:18 16:01 WBC 7.9 RBC 4.21 Hgb 14.1 Hct 41.8 MCV 99 H MCH 33.6 H MCHC 33.8 RDW 14.0 Plt Count 227 Seg Neutrophils % 90.6 H Carbonic Acid 1.19 HCO3/H2CO3 Ratio 20:1 ABG pH 7.40 ABG pCO2 39.7 ABG pO2 198.4 H ABG HCO3 23.9 ABG O2 Saturation 99.4 H ABG Base Excess -0.8 FiO2 BI-PAP Sodium 133.8 L Potassium 4.4 Chloride 97 L Carbon Dioxide 27 Anion Gap 10 BUN 12 Creatinine 0.65 Est GFR ( Amer) > 60 Glucose 143 H Lactic Acid Calcium 9.6 Magnesium Total Bilirubin 0.9 AST 32 Alkaline Phosphatase 61 Total Protein 7.2 Albumin 4.5 Triglycerides Cholesterol LDL Cholesterol Direct VLDL Cholesterol HDL Cholesterol TSH Free T3 pg/mL 10/31/19 10/31/19 11/01/19 16:05 22:25 07:26 WBC 5.0 RBC 3.73 Hgb 12.5 Hct 36.9 MCV 99 H MCH 33.6 H MCHC 33.9 RDW 14.2 H Plt Count 187 Seg Neutrophils % Carbonic Acid HCO3/H2CO3 Ratio ABG pH ABG pCO2 ABG pO2 ABG HCO3 ABG O2 Saturation ABG Base Excess FiO2 Sodium Potassium Chloride Carbon Dioxide Anion Gap BUN Creatinine Est GFR ( Amer) Glucose Lactic Acid 2.3 H 2.7 H Calcium Magnesium Total Bilirubin AST Alkaline Phosphatase Total Protein Albumin Triglycerides Cholesterol LDL Cholesterol Direct VLDL Cholesterol HDL Cholesterol TSH Free T3 pg/mL 11/01/19 11/01/19 07:26 07:26 WBC RBC Hgb Hct MCV MCH MCHC RDW Plt Count Seg Neutrophils % Carbonic Acid HCO3/H2CO3 Ratio ABG pH ABG pCO2 ABG pO2 ABG HCO3 ABG O2 Saturation ABG Base Excess FiO2 Sodium 134.5 L Potassium 4.1 Chloride 98 Carbon Dioxide 30 Anion Gap 7 BUN 12 Creatinine 0.58 Est GFR ( Amer) > 60 Glucose 165 H Lactic Acid Calcium 9.1 Magnesium 1.8 Total Bilirubin AST Alkaline Phosphatase Total Protein Albumin Triglycerides 47 Cholesterol 171.11 LDL Cholesterol Direct 59 VLDL Cholesterol 9.0 L HDL Cholesterol 120 TSH 0.48 Free T3 pg/mL 3.19 10/31/19 10/31/19 10/31/19 15:18 15:18 22:25 Creatine Kinase 82 Cancelled CK-MB (CK-2) 4.93 H Troponin I < 0.012 NT-Pro-B Natriuret Pep 10/31/19 11/01/19 11/01/19 22:25 00:35 00:35 Creatine Kinase 63 CK-MB (CK-2) Cancelled 5.00 H Troponin I Cancelled < 0.012 NT-Pro-B Natriuret Pep 11/01/19 11/01/19 11/01/19 07:26 07:26 07:26 Creatine Kinase Cancelled 69 CK-MB (CK-2) 5.93 H Troponin I < 0.012 NT-Pro-B Natriuret Pep 2880 H 11/01/19 07:26 Creatine Kinase CK-MB (CK-2) Troponin I NT-Pro-B Natriuret Pep Cancelled Impressions: Chest X-Ray 10/31/19 15:53 IMPRESSION: COPD without a superimposed acute cardiopulmonary process. Chest/Abdomen CTA 10/31/19 17:35 IMPRESSION: There is no pulmonary embolus. There is no aortic aneurysm or dissection. Osseous findings as described. Chronic lung changes. Assessment and Plan - Diagnosis (1) Dependence on supplemental oxygen Is this a current diagnosis for this admission?: Yes (2) Acute and chronic respiratory failure with hypoxia Is this a current diagnosis for this admission?: Yes (3) Atrial fibrillation with RVR Is this a current diagnosis for this admission?: Yes (4) COPD exacerbation Is this a current diagnosis for this admission?: Yes (5) Pulmonary arterial hypertension Is this a current diagnosis for this admission?: Yes - Plan Summary Summary: Patient is admitted to [facility] where she will be receiving routine supportive and symptomatic cares. She will be maintained on a Cardizem infusion as needed to control her heart rate until she can be converted to an oral preparation. A cardiology consultation will be obtained with Dr. Guevara. She will receive Ativan 1 mg IV every 4 hours as needed for anxiety or restlessness. She received morphine sulfate 2 to 4 mg IV every 2 hours as needed for pain using a sliding scale for dosing. She will receive a cardiac diet. CBCs, metabolic profiles, magnesium levels and additional laboratory and/or radiographic evaluations will be obtained as appropriate. She will receive supplemental oxygen via nasal cannula and/or noninvasive airway pressure support devices in order to maintain an adequate oxygenation. Her home medications will be resumed as soon as her medication list has been verified and reconciled. 11/01/2019 Appreciate cardiology and respiratory therapy's note. Agree that patient's A. f ib with RVR was probably triggered by her COPD exacerbation. Respiratory therapy has patient much more much more comfortable now. However after having the BiPAP off just for long enough for her to eat she is once again in respiratory distress to be put back on BiPAP. CTA done last night shows only chronic inflammatory changes nothing acute. Cardiology agrees with a low-dose of beta-jasper. She is no longer in atrial fib. Going to consult pulmonology to see if they can give some advice as to how we can discharge her safely from the hospital and what she should be using when at home. Patient has no clinical indication nor radiographic indication of acute infection. Patient is desperate to go home and I have told her that medically she is not stable at this point - Time Time Spent with patient: 25-34 minutes
[2019-11-01 14:13] LABS: CREATINE KINASE MB 6.22 ng/mL (<4.55)
[2019-11-01 14:14] LABS: TROPONIN I < 0.012 ng/mL
--- NOTE | 2019-11-01 19:38 | EKG REPORT ---
SEVERITY:- BORDERLINE ECG - SINUS RHYTHM LOW VOLTAGE WITH RIGHT AXIS DEVIATION : Confirmed by: Roderick Butts MD 01-Nov-2019 19:37:52
[2019-11-02] MEDS: LEVALBUTEROL HCL NEB 1.25 MG/3 ML AMPUL NEB SCH ×2 (00:17→07:33)
[2019-11-02] MEDS: DILTIAZEM HCL 60 MG TABLET PO SCH ×2 (03:21→06:13)
[2019-11-02 05:34] LABS: HEMATOCRIT 34.4 % (36.0-47.0); HEMOGLOBIN 11.8 g/dL (12.0-15.5); MEAN CORPUSCULAR HEMOGLOBIN 34.2 pg (27.0-33.4); MEAN CORPUSCULAR HGB CONC 34.4 g/dL (32.0-36.0); MEAN CORPUSCULAR VOLUME 99 fl (80-97); PLATELET COUNT 181 10^3/uL (150-450); RED BLOOD COUNT 3.46 10^6/uL (3.72-5.28); RED CELL DISTRIBUTION WIDTH 13.7 % (11.5-14.0); WHITE BLOOD COUNT 9.3 10^3/uL (4.0-10.5)
[2019-11-02] MEDS: HEPARIN SOD (PORCINE) 5,000 UNIT/ML 1 ML VIAL SUBCUT SCH (06:14)
[2019-11-02] MEDS: SERTRALINE HCL 50 MG TABLET PO SCH (09:43)
[2019-11-02] MEDS: FUROSEMIDE 20 MG TABLET PO SCH (09:43)
[2019-11-02] MEDS: DOCUSATE SODIUM 100 MG CAPSULE PO SCH (09:43)
[2019-11-02] MEDS: FAMOTIDINE 20 MG TABLET PO SCH (09:43)
[2019-11-02] MEDS: PREDNISONE 10 MG TABLET PO SCH (09:43)
[2019-11-02] MEDS: SILDENAFIL CITRATE 20 MG TABLET PO SCH (09:44)
--- NOTE | 2019-11-02 11:34 | PDOC CONSULTATION ---
Consultation Consult Date: 11/02/19 Attending physician:: JELANI PAZ JR Provider Consulted: ADINA BUTCHER Consult reason:: Respiratory failure History of Present Illness Admission Date/PCP: 10/31/19 21:31 BECCA CLIFFORD History of Present Illness: VALERY TONEY is a 74 year old female presented to my office for cardiac with a SaO2 of 68% on 12 L per [employer]. Patient was sent by ambulance to the hospital. She was found to be in A. fib with RVR as well as her profound hypoxic state. She has advanced COPD as well as advanced pulmonary hypertension. She had been started on OPSUMIT and did well concerned with the cost despite the fact that the company had given her free supply she therefore asked for alternative medication. Trial of OPSUMIT was very successful over over the several weeks that she took it she denies nausea vomiting diarrhea fevers chills rhinorrhea sore throat missing some tightness in her chest and some edema. Past Medical History Cardiac Medical History: Reports: Congestive Heart Failure, Other - Pulmonary hypertension Denies: Atrial Fibrillation, Coronary Artery Disease, DVT, Myocardial Infar ction, Pulmonary Embolism Pulmonary Medical History: Reports: Chronic Obstructive Pulmonary Disease (COPD), Respiratory Failure - Chronic respiratory failure with hypoxia Denies: Asthma EENT Medical History: Denies: Cataracts, Ears - Hearing aids Neurological Medical History: Denies: Hemorrhagic CVA, Ischemic CVA, Seizures Endocrine Medical History: Denies: Diabetes Mellitus Type 1, Diabetes Mellitus Type 2, Hyperthyroidism, Hypothyroidism, Obesity Renal/ Medical History: Denies: Chronic Kidney Disease, Nephrolithiasis Malignancy Medical History: Reports: None GI Medical History: Denies: Cirrhosis, Crohn's Disease, Hepatitis, Peptic Ulcer Disease, Ulcerative Colitis Musculoskeltal Medical History: Denies: Arthritis, Fibromyalgia Skin Medical History: Denies: Eczema, Psoriasis Psychiatric Medical History: Reports: Depression Denies: Alcohol Dependency, Substance Abuse, Tobacco Dependency Traumatic Medical History: Reports: None Hematology: Denies: Anemia, Bleeding Tendencies Infectious Medical History: Reports: None Past Surgical History Past Surgical History: Reports: None Social History Lives with: Spouse/Significant other Smoking Status: Former Smoker Cigarettes Packs Per Day: 2 Number of Years Smokin Passive smoke exposure as: Both Frequency of Alcohol Use: Social - A glass of wine or beer once or twice a week Hx Recreational Drug Use: No Drugs: None Hx Prescription Drug Abuse: No Do you have pets?: No Have you had any respiratory illnesses as a child?: No Have you been exposed to any sick contacts recently?: No Have you had any recent respiratory illnesses?: Yes Have you travelled outside of [place] in the past 12 months?: No - Advance Directive Resuscitation Status: Full Code Family History Family History: denies: CAD, DM, Hypertension, Malignancy Parental Family History Reviewed: Yes Children Family History Reviewed: Yes Sibling(s) Family History Reviewed.: Yes Medication/Allergy Home Medications: Albuterol Sulfate [Ventolin Hfa 8 gm Mdi (1 Mdi/ER Disp)] 2 puff IH Q4HP PRN 10/31/19 Furosemide [Lasix 20 mg Tablet] 20 mg PO DAILY 10/31/19 Macitentan [Opsumit] 10 mg PO DAILY 10/31/19 Prednisone 10 mg PO DAILY 10/31/19 Sertraline HCl 50 mg PO DAILY 10/31/19 Acetaminophen [Tylenol 325 mg Tablet] 650 mg PO Q4HP PRN tablet 11/02/19 Diltiazem HCl [Cardizem LA] 60 mg PO Q12 30 Days #60 tab.er.24h 11/02/19 Docusate Sodium [Colace 100 mg Capsule] 100 mg PO BID capsule 11/02/19 Furosemide [Lasix 20 mg Tablet] 20 mg PO DAILY #0 tablet 11/02/19 Allergies/Adverse Reactions: No Known Allergies Allergy (Verified 10/31/19 16:32) Review of Systems All systems: reviewed and no additional remarkable complaints except as stated Physical Exam Vital Signs: Temp Pulse Resp BP Pulse Ox 97.9 F 77 14 97/41 L 92 11/02/19 08:34 11/02/19 08:34 11/02/19 08:34 11/02/19 08:34 11/02/19 08:34 Intake & Output 11/01/19 11/02/19 11/03/19 06:59 06:59 06:59 Intake Total 502 1174 Output Total 400 680 Balance 102 494 Weight 61.3 kg 61.4 kg General appearance: PRESENT: cooperative, disheveled, mild distress, well- developed, well-nourished Head exam: PRESENT: atraumatic, normocephalic Eye exam: PRESENT: conjunctiva pale, EOMI. ABSENT: nystagmus, periorbital s welling, scleral icterus Mouth exam: PRESENT: dry mucosa, neck supple, tongue midline Neck exam: ABSENT: carotid bruit, full ROM, JVD, lymphadenopathy, meningismus, tenderness, thyromegaly, tracheal deviation, tracheostomy, other Respiratory exam: PRESENT: decreased breath sounds, prolonged expiratory phas, rhonchi, symmetrical, tachypnea. ABSENT: rales, retraction, stridor Cardiovascular exam: PRESENT: irregular rhythm, +S1 Pulses: PRESENT: normal radial pulses GI/Abdominal exam: PRESENT: soft. ABSENT: guarding, mass, rebound, tenderness Extremities exam: PRESENT: full ROM. ABSENT: calf tenderness, clubbing, joint swelling, tenderness Musculoskeletal exam: PRESENT: full ROM. ABSENT: deformity, dislocation Neurological exam: PRESENT: alert, awake Psychiatric exam: PRESENT: anxious Skin exam: PRESENT: dry, warm Results Laboratory Results: 11/02/19 04:47 11/01/19 07:26 11/02/19 11/02/19 04:47 04:47 WBC 9.3 RBC 3.46 L Hgb 11.8 L Hct 34.4 L MCV 99 H MCH 34.2 H MCHC 34.4 RDW 13.7 Plt Count 181 Magnesium 1.9 10/31/19 10/31/19 10/31/19 15:18 15:18 22:25 Creatine Kinase 82 Cancelled CK-MB (CK-2) 4.93 H Troponin I < 0.012 NT-Pro-B Natriuret Pep 10/31/19 11/01/19 11/01/19 22:25 00:35 00:35 Creatine Kinase 63 CK-MB (CK-2) Cancelled 5.00 H Troponin I Cancelled < 0.012 NT-Pro-B Natriuret Pep 11/01/19 11/01/19 11/01/19 07:26 07:26 07:26 Creatine Kinase Cancelled 69 CK-MB (CK-2) 5.93 H Troponin I < 0.012 NT-Pro-B Natriuret Pep 2880 H 11/01/19 11/01/19 11/01/19 07:26 13:15 13:15 Creatine Kinase 80 CK-MB (CK-2) 6.22 H Troponin I < 0.012 NT-Pro-B Natriuret Pep Cancelled Impressions: Chest X-Ray 10/31/19 15:53 IMPRESSION: COPD without a superimposed acute cardiopulmonary process. Chest/Abdomen CTA 10/31/19 17:35 IMPRESSION: There is no pulmonary embolus. There is no aortic aneurysm or dissection. Osseous findings as described. Chronic lung changes. Assessment & Plan - Diagnosis (1) Atrial fibrillation with RVR Is this a current diagnosis for this admission?: Yes Plan: As per cardiology (2) COPD exacerbation Is this a current diagnosis for this admission?: Yes Plan: Continue current bronchodilator therapy (3) Dependence on supplemental oxygen Is this a current diagnosis for this admission?: Yes Plan: We will get bedside spirometry hopefully can qualify patient for BiPAP at home. The above patient has failed BiPAP with a patent airway and displaying FEV1 of 40% or less. This patient would benefit from noninvasive mechanical ventilation via the trilogy AVAPS/AE and faster responding AVAPS rates. The trilogy is able to provide a target tidal volume and also adjusting the EPAP pressures to maintain a patent airway as well as an oral backup rate this machine will help improve PaCO2 levels. The severity of the patient's condition will lead to future hospitalizations and readmissions as well as life-threatening situations without the use of this device day and night. Trilogy home vent needed for hypercapnic respiratory failure. [facility] or [facility] to follow for trilogy set up. (4) Pulmonary arterial hypertension Is this a current diagnosis for this admission?: Yes Plan: OPSUMIT medication is at home to take as directed in the hospital - Time Time Spent with patient: 55 min
[2019-11-02 12:27] VITALS: BP 128/59
--- NOTE | 2019-11-02 12:48 | PDOC PROGRESS REPORT ---
Subjective Progress Note for:: 11/02/19 Subjective:: Patient seem to be getting a breathing treatment. Otherwise no episodes reported. Reason For Visit: ATRIAL FIBRILATION WITH RAPID VENTRICULAR RESPONSE Physical Exam Vital Signs: Temp Pulse Resp BP Pulse Ox 97.9 F 77 14 128/59 H 92 11/02/19 12:23 11/02/19 12:23 11/02/19 12:23 11/02/19 12:23 11/02/19 12:23 Intake & Output 11/01/19 11/02/19 11/03/19 06:59 06:59 06:59 Intake Total 502 1174 Output Total 400 680 Balance 102 494 Weight 61.3 kg 61.4 kg General appearance: PRESENT: no acute distress, cooperative, well-developed Head exam: PRESENT: atraumatic, normocephalic Eye exam: PRESENT: EOMI Respiratory exam: PRESENT: symmetrical, tachypnea Cardiovascular exam: PRESENT: RRR Neurological exam: PRESENT: alert, awake, oriented to person, oriented to place Psychiatric exam: PRESENT: appropriate affect Results Laboratory Results: 11/02/19 04:47 11/01/19 07:26 11/02/19 11/02/19 04:47 04:47 WBC 9.3 RBC 3.46 L Hgb 11.8 L Hct 34.4 L MCV 99 H MCH 34.2 H MCHC 34.4 RDW 13.7 Plt Count 181 Magnesium 1.9 10/31/19 10/31/19 10/31/19 15:18 15:18 22:25 Creatine Kinase 82 Cancelled CK-MB (CK-2) 4.93 H Troponin I < 0.012 NT-Pro-B Natriuret Pep 10/31/19 11/01/19 11/01/19 22:25 00:35 00:35 Creatine Kinase 63 CK-MB (CK-2) Cancelled 5.00 H Troponin I Cancelled < 0.012 NT-Pro-B Natriuret Pep 11/01/19 11/01/19 11/01/19 07:26 07:26 07:26 Creatine Kinase Cancelled 69 CK-MB (CK-2) 5.93 H Troponin I < 0.012 NT-Pro-B Natriuret Pep 2880 H 11/01/19 11/01/19 11/01/19 07:26 13:15 13:15 Creatine Kinase 80 CK-MB (CK-2) 6.22 H Troponin I < 0.012 NT-Pro-B Natriuret Pep Cancelled EKG Comments: Telemetry presently shows sinus rhythm Impressions: Chest X-Ray 10/31/19 15:53 IMPRESSION: COPD without a superimposed acute cardiopulmonary process. Chest/Abdomen CTA 10/31/19 17:35 IMPRESSION: There is no pulmonary embolus. There is no aortic aneurysm or dissection. Osseous findings as described. Chronic lung changes. Assessment & Plan - Diagnosis (1) Atrial fibrillation with RVR Is this a current diagnosis for this admission?: Yes Plan: Atrial fibrillation with rapid ventricular response with spontaneous correction to sinus rhythm without intervention Plan on discharging with low-dose diltiazem to suppress triggers for atrial fibrillation This was likely atrial fibrillation triggered on account of hypoxia and respiratory distress. Should such episodes recur should consider long-term systemic anticoagulation. This can be monitored on an outpatient basis (2) COPD exacerbation Is this a current diagnosis for this admission?: Yes Plan: Presently getting nebulization therapy.
--- NOTE | 2019-11-02 16:13 | PDOC DISCHARGE SUMMARY ---
Impression - Admit/DC Date/PCP Admission Date/Primary Care Provider: 10/31/19 21:31 BECCA CLIFFORD Discharge Date: 11/02/19 - Discharge Diagnosis (1) Dependence on supplemental oxygen Is this a current diagnosis for this admission?: Yes (2) Acute and chronic respiratory failure with hypoxia Is this a current diagnosis for this admission?: Yes (3) Atrial fibrillation with RVR Is this a current diagnosis for this admission?: Yes (4) COPD exacerbation Is this a current diagnosis for this admission?: Yes (5) Pulmonary arterial hypertension Is this a current diagnosis for this admission?: Yes - Assessment Summary: Patient is admitted to [facility] where she will be receiving routine supportive and symptomatic cares. She will be maintained on a Cardizem infusion as needed to control her heart rate until she can be converted to an oral preparation. A cardiology consultation will be obtained with Dr. Wen. She will receive Ativan 1 mg IV every 4 hours as needed for anxiety or restlessness. She received morphine sulfate 2 to 4 mg IV every 2 hours as needed for pain using a sliding scale for dosing. She will receive a cardiac diet. CBCs, metabolic profiles, magnesium levels and additional laboratory and/or radiographic evaluations will be obtained as appropriate. She will receive supplemental oxygen via nasal cannula and/or noninvasive airway pressure support devices in order to maintain an adequate oxygenation. Her home medications will be resumed as soon as her medication list has been verified and reconciled. 11/01/2019 Appreciate cardiology and respiratory therapy's note. Agree that patient's A. fib with RVR was probably triggered by her COPD exacerbation. Respiratory therapy has patient much more much more comfortable now. However after having the BiPAP off just for long enough for her to eat she is once again in respiratory distress to be put back on BiPAP. CTA done last night shows only chronic inflammatory changes nothing acute. Cardiology agrees with a low-dose of beta-jasper. She is no longer in atrial fib. Going to consult pulmonology to see if they can give some advice as to how we can discharge her safely from the hospital and what she should be using when at home. Patient has no clinical indication nor radiographic indication of acute infection. Patient is desperate to go home and I have told her that medically she is not stable at this point 11/02/2019 Patient was seen by both cardiology as well as pulmonology today in consultation. Pulmonology feels that the patient would benefit from spirometry testing and is asked her to be referred to his office for a stat pulmonary function study. Fortunately bedside spirometry could not be performed. [place] like she would benefit if qualified for BiPAP at home Also patient would benefit from resuming her [facility] Theology felt that the patient should go home on a low dose of etizolam to help suppress triggers for atrial fib She was discharged home, told to go by Dr. Jacobsen's office immediately following discharge for spirometry testing. Patient did feel much better at the time of discharge and was no longer in atrial fib Final diagnosis atrial fib RVR, end-stage COPD, pulmonary hypertension, hypoxia, oxygen dependency. Discharged on Cardizem LA 60 mg twice daily plus her other meds - Additional Information Resuscitation Status: Full Code Discharge Diet: As Tolerated Discharge Activity: Balance Activity w/Rest Referrals: ADINA JACOBSEN MD [ACTIVE STAFF] - 11/09/19 10:00 am PEREZ WEN MD [ACTIVE STAFF] - 11/14/19 10:15 am Prescriptions: Diltiazem HCl [Cardizem LA] 60 mg PO Q12 30 Days #60 tab.er.24h Home Medications: Albuterol Sulfate [Ventolin Hfa 8 gm Mdi (1 Mdi/ER Disp)] 2 puff IH Q4HP PRN 10/31/19 Furosemide [Lasix 20 mg Tablet] 20 mg PO DAILY 10/31/19 Macitentan [Opsumit] 10 mg PO DAILY 10/31/19 Prednisone 10 mg PO DAILY 10/31/19 Sertraline HCl 50 mg PO DAILY 10/31/19 Acetaminophen [Tylenol 325 mg Tablet] 650 mg PO Q4HP PRN tablet 11/02/19 Diltiazem HCl [Cardizem LA] 60 mg PO Q12 30 Days #60 tab.er.24h 11/02/19 Docusate Sodium [Colace 100 mg Capsule] 100 mg PO BID capsule 11/02/19 Furosemide [Lasix 20 mg Tablet] 20 mg PO DAILY #0 tablet 11/02/19 History of Present Illiness History of Present Illness: VALERY TONEY is a 74 year old female Physical Exam Vital Signs: Temp Pulse Resp BP Pulse Ox 97.9 F 77 14 128/59 H 92 11/02/19 12:23 11/02/19 12:23 11/02/19 12:23 11/02/19 12:23 11/02/19 12:23 Intake & Output 11/01/19 11/02/19 11/03/19 06:59 06:59 06:59 Intake Total 502 1174 Output Total 400 680 Balance 102 494 Weight 61.3 kg 61.4 kg Results Laboratory Results: WBC 9.3 10^3/uL (4.0-10.5) 11/02/19 04:47 RBC 3.46 10^6/uL (3.72-5.28) L 11/02/19 04:47 Hgb 11.8 g/dL (12.0-15.5) L 11/02/19 04:47 Hct 34.4 % (36.0-47.0) L 11/02/19 04:47 MCV 99 fl (80-97) H 11/02/19 04:47 MCH 34.2 pg (27.0-33.4) H 11/02/19 04:47 MCHC 34.4 g/dL (32.0-36.0) 11/02/19 04:47 RDW 13.7 % (11.5-14.0) 11/02/19 04:47 Plt Count 181 10^3/uL (150-450) 11/02/19 04:47 Lymph % (Auto) 5.8 % (13-45) L 10/31/19 15:18 [place] % (Auto) 2.7 % (3-13) L 10/31/19 15:18 Eos % (Auto) 0.3 % (0-6) 10/31/19 15:18 Baso % (Auto) 0.6 % (0-2) 10/31/19 15:18 Absolute Neuts (auto) 7.1 10^3/uL (1.7-8.2) 10/31/19 15:18 Absolute Lymphs (auto) 0.5 10^3/uL (0.5-4.7) 10/31/19 15:18 Absolute Monos (auto) 0.2 10^3/uL (0.1-1.4) 10/31/19 15:18 Absolute Eos (auto) 0.0 10^3/uL (0.0-0.6) 10/31/19 15:18 Absolute Basos (auto) 0.1 10^3/uL (0.0-0.2) 10/31/19 15:18 Seg Neutrophils % 90.6 % (42-78) H 10/31/19 15:18 D-Dimer 0.59 ug/mL (0.00-0.50) H 10/31/19 15:18 Carbonic Acid 1.19 mmol/L (1.05-1.35) 10/31/19 16:01 HCO3/H2CO3 Ratio 20:1 10/31/19 16:01 ABG pH 7.40 (7.35-7.45) 10/31/19 16:01 ABG pCO2 39.7 mmHg (35-45) 10/31/19 16:01 ABG pO2 198.4 mmHg (80-100) H 10/31/19 16:01 ABG HCO3 23.9 mmol/L (20-24) 10/31/19 16:01 ABG Total CO2 25.1 mmol/L (21-25) H 10/31/19 16:01 ABG O2 Saturation 99.4 % (94-98) H 10/31/19 16:01 ABG Base Excess -0.8 mmol/L 10/31/19 16:01 FiO2 BI-PAP 10/31/19 16:01 Sodium 134.5 mmol/L (137-145) L 11/01/19 07:26 Potassium 4.1 mmol/L (3.6-5.0) 11/01/19 07:26 Chloride 98 mmol/L (98-107) 11/01/19 07:26 Carbon Dioxide 30 mmol/L (22-30) 11/01/19 07:26 Anion Gap 7 (5-19) 11/01/19 07:26 BUN 12 mg/dL (7-20) 11/01/19 07:26 Creatinine 0.58 mg/dL (0.52-1.25) 11/01/19 07:26 Est GFR ( Amer) > 60 (>60) 11/01/19 07:26 Est GFR (MDRD) Non-Af > 60 (>60) 11/01/19 07:26 Glucose 165 mg/dL (75-110) H 11/01/19 07:26 Lactic Acid 2.7 mmol/L (0.7-2.1) H 10/31/19 22:25 Calcium 9.1 mg/dL (8.4-10.2) 11/01/19 07:26 Magnesium 1.9 mg/dL (1.6-2.3) 11/02/19 04:47 Total Bilirubin 0.9 mg/dL (0.2-1.3) 10/31/19 15:18 Direct Bilirubin 0.0 mg/dL (0.0-0.4) 10/31/19 15:18 Neonat Total Bilirubin Not Reportable 10/31/19 15:18 Neonat Direct Bilirubin Not Reportable 10/31/19 15:18 Neonat Indirect Bili Not Reportable 10/31/19 15:18 AST 32 U/L (14-36) 10/31/19 15:18 ALT 11 U/L (<35) 10/31/19 15:18 Alkaline Phosphatase 61 U/L (38-126) 10/31/19 15:18 Creatine Kinase 80 U/L (30-135) 11/01/19 13:15 CK-MB (CK-2) 6.22 ng/mL (<4.55) H 11/01/19 13:15 Troponin I < 0.012 ng/mL 11/01/19 13:15 NT-Pro-B Natriuret Pep 2880 pg/mL (<450) H 11/01/19 07:26 NT-Pro-B Natriuret Pep Cancelled 11/01/19 07:26 Total Protein 7.2 g/dL (6.3-8.2) 10/31/19 15:18 Albumin 4.5 g/dL (3.5-5.0) 10/31/19 15:18 Triglycerides 47 mg/dL (<150) 11/01/19 07:26 Cholesterol 171.11 mg/dL (0-200) 11/01/19 07:26 LDL Cholesterol Direct 59 mg/dL (<100) 11/01/19 07:26 VLDL Cholesterol 9.0 mg/dL (10-31) L 11/01/19 07:26 HDL Cholesterol 120 mg/dL (>40) 11/01/19 07:26 TSH 0.48 uIU/mL (0.47-4.68) 11/01/19 07:26 Free T3 pg/mL 3.19 pg/mL (2.77-5.27) 11/01/19 07:26 SARS-CoV-2 (PCR) NEGATIVE (NEGATIVE) 10/31/19 16:11 10/31/19 10/31/19 11/01/19 15:18 22:25 00:35 CK-MB (CK-2) 4.93 H Cancelled 5.00 H Troponin I < 0.012 Cancelled < 0.012 NT-Pro-B Natriuret Pep 11/01/19 11/01/19 11/01/19 07:26 07:26 13:15 CK-MB (CK-2) 5.93 H 6.22 H Troponin I < 0.012 < 0.012 NT-Pro-B Natriuret Pep 2880 H Cancelled Impressions: Chest X-Ray 10/31/19 15:53 IMPRESSION: COPD without a superimposed acute cardiopulmonary process. Chest/Abdomen CTA 10/31/19 17:35 IMPRESSION: There is no pulmonary embolus. There is no aortic aneurysm or dissection. Osseous findings as described. Chronic lung changes. Stroke Is this a Stroke Patient?: No Acute Heart Failure - Is this a Heart Failure Patient?: No
== END 2019-11-02 13:32 | disposition home or self-care (01) | DRG 189 ==
LOC: ER 15:48 → EH 21:31 → 3N 11-01 03:36
PROVIDERS: ADMIT Emergency Medicine; ATTEND Physician Assistant
PROC: 5A09357 Assistance with Respiratory Ventilation, Less than 24 Consecutive Hours, Continuous Positive Airway Pressure (ICD-10-PCS; principal; 2019-10-31)
DX: J96.21 Acute and chronic respiratory failure with hypoxia (principal); J44.1 Chronic obstructive pulmonary disease with (acute) exacerbation; I48.0 Paroxysmal atrial fibrillation; I27.21 Secondary pulmonary arterial hypertension; Z99.81 Dependence on supplemental oxygen; I50.9 Heart failure, unspecified; Z20.828 Contact with and (suspected) exposure to other viral communicable diseases; F32.9 Major depressive disorder, single episode, unspecified; Z79.52 Long term (current) use of systemic steroids; Z79.899 Other long term (current) drug therapy; Z87.891 Personal history of nicotine dependence
CPT/HCPCS: 36415; 71045; 71275; 80048; 80053; 80061; 82550; 82553; 82803; 83605; 83735; 83880; 84443; 84481; 84484; 85025; 85027; 85379; 87040; 87635; 93005; 93010; 94640; 94660; 96365; 96366; 96375; 99291; J1644; J2930; J3490; J7512; J7620